=== PATIENT | male | born 1955 | race Caucasian/White ===

== ENCOUNTER → 2017-05-28 | Outpatient (CLI) | payer BC ==
--- NOTE | 2017-05-28 13:36 | RADIOLOGY IMAGING REPORT ---
FACILITY: [facility] [place] PATIENT NAME: Casey Hein : 1955 MR: [id number] V: [id number] EXAM DATE: ORDERING PHYSICIAN: MOHSEN AGUILLON TECHNOLOGIST: Location: [facility] [place] Patient: Casey Hein : 1955 Visit/Account:[id number] Date of Sevice: 05/28/2017 Exam type: LUMBAR SPINE 2 OR 3 VIEW History: Low back pain Comparison: None. Findings: Five nonrib-bearing lumbar-type vertebral bodies present. There is no evidence of acute fractures or subluxations. There is moderate disc space narrowing from T10 to S1 small marginal osteophytes are noted throughout the visualized thoracal lumbar spine. Incidentally noted is a left hip arthroplasty IMPRESSION: 1. Moderate spondylotic changes throughout the visualized lower thoracic and the lumbar spine. Report Dictated By: Kendra Nye MD at 05/28/2017 1:31 PM Report E-Signed By: Kendra Nye MD at 05/28/2017 1:32 PM DMN:[email or web address]
== END ==
LOC: RAD 11:56
PROVIDERS: ATTEND Physician Assistant
DX: M47.894 Other spondylosis, thoracic region (principal); M47.896 Other spondylosis, lumbar region
CPT/HCPCS: 72100

== ENCOUNTER → 2018-03-23 | Outpatient (CLI) | payer MEDICARE, BC ==
--- NOTE | 2018-03-23 13:16 | RADIOLOGY IMAGING REPORT ---
FACILITY: PATIENT NAME: Casey Hein : 1955 MR: [id number] V: [id number] EXAM DATE: ORDERING PHYSICIAN: MAYUR HONG TECHNOLOGIST: Location: [facility] Patient: Casey Hein : 1955 Visit/Account:[id number] Date of Sevice: 03/23/2018 SHOULDER LEFT W/O CONTRAST HISTORY: Left shoulder pain TECHNIQUE: CT images were obtained through the left shoulder without intravenous contrast. 2D mccabe l and sagittal images obtained from the initial data. One of the following dose optimization techniqu es was utilized in the performance of this exam: automated exposure control; adjustment of the mA and /or kv according to patient size; or use of iterative reconstruction technique. Specific details can be referenced in the facility's radiology CT exam operational policy. CONTRAST: None COMPARISON: None. FINDINGS: Glenohumeral joint: There is superior migration of the humeral head with the humeral-acromial interva l measuring 3 mm highly concerning for underlying rotator cuff tear. Mild fatty streaking of the supr aspinatus and infraspinatus muscles. Mild degenerative changes at the glenohumeral joint with mild renata int space narrowing and tiny osteophytes. Mild subchondral cystic change within the posterior glenoid . No evidence of AVN. No joint effusion No loose body. AC joint: Mild inferior spurring at the AC joint. No significant lateral acromial downsloping. Acromi um is type II. Soft tissues: Normal Other findings: None significant IMPRESSION: 1. Superior migration of the humeral head with the humeral-acromial interval measuring 3 mm highly co ncerning for full-thickness rotator cuff tears. Mild fatty streaking of the supraspinatus and infrasp inatus muscles. Recommend MRI for further evaluation. 2. Mild degenerative changes at the glenohumeral joint. 3. Mild inferior spurring at the AC joint. Report Dictated By: Terry Sahu MD at 03/23/2018 1:07 PM Report E-Signed By: Terry Sahu MD at 03/23/2018 1:12 PM WSN:[id number]
== END ==
LOC: CT 03:52
PROVIDERS: ATTEND Orthopaedic Surgery Hand Surgery
DX: M19.012 Primary osteoarthritis, left shoulder (principal); M25.512 Pain in left shoulder

== ENCOUNTER 2018-04-23 02:22 | Day surgery (SDC) | payer MEDICARE, BC ==
[~2018-04-23] VITALS: Ht 170.2 cm; Wt 79.8 kg
[~2018-04-23 02:22] MED LIST: AMLO-127 PO; ASCO-182 PO; ASPI81TA94 PO; ATOR40TA24 PO; CALC500T6 PO; CHOL10005 PO; FOLI0.8T29 PO; FOLI20CA2 PO; KRIL500C2 PO; LEVO75TA73 PO; MAGNESIUM PO; METO25TA23 PO; MULT-60 PO; POTA99TA6 PO; SAW500CA PO
[2018-04-23] MEDS ORDERED: PROPOFOL EMUL(*) 10MG/ML 20 ML 20 ML ONE (07:17)
[2018-04-23 07:51] VITALS: BP 125/90
[2018-04-23] MEDS ORDERED: NORMOSOL R SOLN(*) 1000 ML BAG 1,000 ML IV PRN (08:30)
[2018-04-23] MEDS ORDERED: LIDOCAINE/SOD BICARB 8.4% SYR ID ONE (08:30)
[2018-04-23 09:49] VITALS: BP 98/68
[2018-04-23 10:15] VITALS: BP 106/77
[2018-04-23 10:30] VITALS: BP 92/85
[2018-04-23 10:41] VITALS: BP 105/74
[2018-04-23 10:42] VITALS: BP 114/79
--- NOTE | 2018-04-23 11:05 | NUR ---
0949: REPORT FROM DR ORELLANA AND RL MILK RUNNER. PT LUNGS ARE CLEAR IN ALL LOBES, HYPERACTIVE BOWL SOUNDS. PT IS STILL SLEEPING. 1000: PT AWAKE 1008: PT GIVEN WATER AND WAYNE CRACKERS, TOLERATED WELL 1015: PT MOVED TO 1L NC, MAINTAINING SATS 1030: PT MOVED TO ROOM AIR, MAINTAINING SATS, DISCHARGE INSTRUCTIONS GIVEN TO PT AND THEY STATE UNDERSTANDING 1035: PT DRESSING TO LEAVE 1036: IV DC'ED WITH CATH INTACT, PRESSURE DRESSING APPLIED. PT WALKED TO WAITING ROOM, ON THE WAY THE PTS GOT SHORT OF BREATH AND WE SAT IN THE WAITING ROOM UNTIL 1100 SO THAT SHE COULD CATCH HER BREATH IN ORDER TO CONTINUE TO THE CAR.
[2018-05-14] MEDS ORDERED: OMEP-218 PO (10:21)
[2018-05-14] MEDS ORDERED: LEVO88TA43 PO (12:50)
== END 2018-04-23 11:00 | disposition home or self-care (01) ==
LOC: OR 02:22
PROVIDERS: ATTEND Family Medicine
DX: Z12.11 Encounter for screening for malignant neoplasm of colon (principal); K57.30 Diverticulosis of large intestine without perforation or abscess without bleeding; Z86.010 Personal history of colon polyps
CPT/HCPCS: 00812; G0121; J2704

== ENCOUNTER → 2018-05-05 | Outpatient (REF) | payer MEDICARE, BC | LOC: ZZSENDIN 10:03 | PROVIDERS: ATTEND Physician Assistant | DX: Z01.818 Encounter for other preprocedural examination (principal) | CPT/HCPCS: 81001 ==

== ENCOUNTER 2018-05-22 03:37 | Day surgery (SDC) | payer MEDICARE, BC ==
[2018-05-21 15:35] LABS: INR 0.98
[~2018-05-22] VITALS: Ht 170.2 cm; Wt 82.1 kg
[~2018-05-22 03:37] MED LIST changes: +LEVO88TA43 PO; +OMEP-218 PO
[2018-05-22] MEDS ORDERED: CELECOXIB 200 MG CAP PO ONE (06:15)
[2018-05-22] MEDS ORDERED: TRANEXAMIC AC 1000 MG/10ML SDV 1,000 MG in DEXTROSE 5% 50 ML BAG 50 ML IV ONE (06:15)
[2018-05-22] MEDS ORDERED: MIDAZOLAM 2 MG/2 ML VIAL IVP PRN (06:15)
[2018-05-22] MEDS ORDERED: NORMOSOL R SOLN(*) 1000 ML BAG 1,000 ML IV PRN (06:15)
[2018-05-22] MEDS ORDERED: ACETAMINOPHEN 500 MG TAB PO ONE (06:15)
[2018-05-22] MEDS ORDERED: PREGABALIN 150 MG CAPSULE PO ONE (06:15)
[2018-05-22] MEDS ORDERED: LIDOCAINE/SOD BICARB 8.4% SYR ID ONE (06:15)
[2018-05-22] MEDS ORDERED: VANCOMYCIN(*) 1 GM VIAL 1 GM, VANCOMYCIN (*) 0.5 GM VIAL 0.25 GM in NS(*) 0.9% 250 ML B... IVPB ONE (06:15)
[2018-05-22] MEDS ORDERED: ROPIVACAINE/EPI/CLONIDINE/KET 50 ML SYRINGE INJ ONE (06:15)
[2018-05-22 07:20] VITALS: BP 113/79
[2018-05-22] MEDS ORDERED: PROPOFOL EMUL(*) 10MG/ML 20 ML 20 ML ONE (07:21)
[2018-05-22] MEDS ORDERED: ONDANSETRON 4 MG/2 ML VIAL ONE (07:21)
[2018-05-22] MEDS ORDERED: LIDOCAINE MPF 1% 5 ML VIAL ONE (07:21)
[2018-05-22] MEDS ORDERED: fentaNYL CITR 250 MCG/5 ML AMP ONE (07:21)
[2018-05-22] MEDS ORDERED: DEXAMETHASONE SOD 4 MG/ML VIAL ONE ×2 (07:21→07:49)
[2018-05-22] MEDS ORDERED: NS 0.9% 20 ML SDV 0 ML ONE (07:24)
[2018-05-22] MEDS ORDERED: EPINEPHrine HCL 1 MG/ML AMP ONE (07:24)
[2018-05-22] MEDS ORDERED: ROPIVACAINE 0.5% 20 ML VIAL ONE (07:24)
[2018-05-22] MEDS ORDERED: KETAMINE HCL 200 MG/20 ML MDV ONE (08:47)
[2018-05-22] MEDS ORDERED: ePHEDrine 25 MG/5 ML DISP.SYR IVP ONE (08:50)
[2018-05-22] MEDS ORDERED: SUGAMMADEX SOD 200 MG/2 ML SDV ONE (09:29)
[2018-05-22] MEDS ORDERED: fentaNYL CITR 100 MCG/2 ML AMP ONE (10:52)
[2018-05-22] MEDS ORDERED: OXYC5CAP21 PO (10:55)
--- NOTE | 2018-05-22 11:35 | RADIOLOGY IMAGING REPORT ---
FACILITY: [facility] PATIENT NAME: Casey Hein : 1955 MR: [id number] V: [id number] EXAM DATE: ORDERING PHYSICIAN: MAYUR HONG TECHNOLOGIST: Location: [facility] Patient: Casey Hein : 1955 Visit/Account:[id number] Date of Sevice: 05/22/2018 SHOULDER 1 VIEW LEFT HISTORY: S/P TOTAL REVERSE SHOULDER ARTHROPLASTY COMPARISON: None FINDINGS: A single AP view of the left shoulder demonstrates that the patient is status post replacem ent of the left glenohumeral joint. The joint prosthesis appears to be located normally. There is n o evidence of acute bony abnormality identified. There is no significant soft tissue abnormality ivan ntified. There are postsurgical changes present. IMPRESSION: Status post left glenohumeral joint replacement. Report Dictated By: Madhu Rubin at 05/22/2018 11:30 AM Report E-Signed By: Madhu Rubin at 05/22/2018 11:31 AM WSN:[id number]
--- NOTE | 2018-05-22 11:50 | OPERATIVE REPORT 1 ---
EVENT DATE: May 22, 2018 SURGEON: Rickie Rutledge MD ANESTHESIOLOGIST: Carlos Crandall MD ANESTHESIA: General. PROM BURN OFF OPERATOR: JEWEL Nichols PREOPERATIVE DIAGNOSIS Left shoulder cuff tear arthropathy. POSTOPERATIVE DIAGNOSIS Left shoulder cuff tear arthropathy. PROCEDURE PERFORMED Left reverse total shoulder arthroplasty (52543) ESTIMATED BLOOD LOSS 150. INTRAVENOUS FLUIDS 1000 crystalloids, no colloid. TOURNIQUET TIME None. SPECIMENS None. COMPLICATIONS None. IMPLANTS USED DePuy Delta Xtend, 12 stem with standard cup, 2 left eccentric epiphysis, standard metaglene, offset 42 glenosphere and four locking screws. DESCRIPTION OF PROCEDURE The patient was brought into the operating room and placed on the OR table in the supine position. He was given a general anesthetic. His left shoulder was then prepped and draped in the usual sterile fashion in a semi beach-chair position. A deltopectoral approach was taken through skin and subcutaneous tissue. The cephalic vein was identified and left with the deltoid and retracted to the lateral side. The axial nerve was palpated. The conjoined tendon was retracted medially and then we split the remainder of the subscapularis. The superior portion of the rotator cuff was not present. Traction sutures were placed on this structure. We then brought the humeral head forward, released the capsule off the neck of the humerus. I did not make an attempt to remove a lot of osteophyte at this time because he really did not have a lot to begin with but also because I feel that this sometimes weakens the support for the reaming and then ends up with a fracture. We got access to the intramedullary canal and progressively reamed up to a 12 and then made our head cut with 10 degrees of retroversion. A cap was placed on the head and it was retracted and then we began to work circumferentially to strip the tissues from around the glenoid. We released the biceps and placed the rabbit ear retractor for inferior displacement of the humeral head and then begin reaming the glenoid. Once reaming was complete, we sat the metaglene, placed four locking screws, two 36's and two 24's. These were then tightened progressively and then locked sequentially, after which we placed an eccentric 42 glenosphere and then proceeded to go back to the humeral head. We finished out the humeral preparation by placing a trial and setting the retroversion at 10. The reaming was undertaken using a #2 offset reamer, which fit well. It was set for 0 degrees and then the final trial was placed and reduced with a +3 (standard). It was very stable in reduction. It did not seem to impact along the inferior surface of the scapula. It was quite difficult to dislocate afterwards so that we could proceed with the case, which is usually a good sign. We then removed the trial implant. We injected local anesthetic with our "cocktail" throughout the glenoid and soft tissues in this region since he had elected not to do a block and then completed the final implant. We reduced it and then went ahead with the subscapularis repair. The wound was irrigated again, both with Aricept as well as saline, and then we closed using 3-0 Vicryl, 4-0 Monocryl and Steri- Strips. He was given a dry sterile dressing and was transferred to the recovery room in stable condition. CAROLIN
[2018-05-22] MEDS ORDERED: oxyCODONE HCL 5 MG CAP ONE ×2 (11:56→12:25)
[2018-05-22 12:00] VITALS: BP 114/74
[2018-05-22 12:15] VITALS: BP 113/72
--- NOTE | 2018-05-22 12:27 | NUR ---
REPORTS PAIN IN SHOULDER IS GETTING STRONGER. RATES IT 6/. SECOND OXYCODONE 5 MG GIVEN.
[2018-05-22 12:30] VITALS: BP 126/97
[2018-05-22 12:33] VITALS: BP 124/89
== END 2018-05-22 12:00 | disposition home or self-care (01) ==
LOC: OR 03:37
PROVIDERS: ATTEND Orthopaedic Surgery Hand Surgery
DX: M12.9 Arthropathy, unspecified (principal); M75.102 Unspecified rotator cuff tear or rupture of left shoulder, not specified as traumatic; Z79.82 Long term (current) use of aspirin; I10 Essential (primary) hypertension; E07.9 Disorder of thyroid, unspecified
CPT/HCPCS: 23472; 36415; 73020; 85014; 85018; 85610; 86850; 86900; 86901; A9270; J1100; J2001; J2405; J2704; J3010; J3370; J3490; J7050; J7060; J0171; J2795